=== PATIENT | female | born 1935 | race Caucasian/White ===

== ENCOUNTER 2021-06-02 07:36 | Emergency (ER) | payer OTHER ==
[~2021-06-02] VITALS: Ht 160 cm; Wt 49.4 kg
[2021-06-02] MEDS ORDERED: EUTHYROX75 MC1 (08:11)
[2021-06-02] MEDS ORDERED: SULFAMETHOXAZO1 EAC1 (08:11)
[2021-06-02 08:36] LABS: Source, Urine Clean Catch
[2021-06-02 08:41] LABS: Appearance, Urine Hazy (Clear); Bilirubin, Urine Neg (Neg); Blood, Urine 1+ (Neg); Color, Urine Yellow (P-Yellow); Glucose Qualitative, Urine Neg (Neg); Ketones, Urine Neg (Neg); Leukocyte Esterase, Urine 2+ (Neg); Nitrite, Urine Neg (Neg); Protein, Urine 1+ (Neg); Urobilinogen, Urine 1+ (Normal)
[2021-06-02 08:52] LABS: Squamous Epithelial Cells Many /hpf (Few)
[2021-06-02 08:53] LABS: Bacteria Mod /hpf; Hyaline Casts 0-2 /lpf (0-2)
[2021-06-02] MEDS ORDERED: CEFD300 PO (09:20)
[2021-06-02] MEDS ORDERED: LOVASTATIN20 MG PO (11:07)
[2021-06-02] MEDS ORDERED: ESTRADIOL10 MCG VG (11:07)
[2021-06-02] MEDS ORDERED: METOPROLOL SUCC25 MG PO (11:08)
[2021-06-02] MEDS ORDERED: LISI20 PO (11:08)
[2021-06-02] MEDS ORDERED: TRIM100 PO (11:09)
[2021-06-03] MEDS ORDERED: MERIBIN5 MG PO (23:19)
[2021-06-03] MEDS ORDERED: OMEP20ER PO (23:19)
[2021-06-03] MEDS ORDERED: OMEGA-3 FISH O1 EAC6 PO ×2 (23:20→23:21)
== END 2021-06-02 09:43 | disposition home or self-care (01) ==
LOC: ER 07:36
PROVIDERS: Emergency Medicine
DX: N39.0 Urinary tract infection, site not specified (principal); Z88.5 Allergy status to narcotic agent
CPT/HCPCS: 81001; 87077; 87086; 87186; 99283; A9270

== ENCOUNTER 2021-06-02 10:43 | Inpatient (IN) | payer OTHER ==
[~2021-06-02] VITALS: Ht 160 cm; Wt 49.2 kg
[~2021-06-02 10:43] MED LIST: CEFD300 PO; EUTHYROX75 MC1; SULFAMETHOXAZO1 EAC1
[2021-06-02] MEDS ORDERED: LOVASTATIN20 MG PO (11:07)
[2021-06-02] MEDS ORDERED: ESTRADIOL10 MCG VG (11:07)
[2021-06-02] MEDS ORDERED: METOPROLOL SUCC25 MG PO (11:08)
[2021-06-02] MEDS ORDERED: LISI20 PO (11:08)
[2021-06-02] MEDS ORDERED: TRIM100 PO (11:09)
[2021-06-02 11:25] LABS: BASOPHILS ABSOLUTE AUTO 0.03 K/mm3 (0.00-0.23); BASOPHILS PERCENT AUTO 0 % (0-2); EOSINOPHILS ABSOLUTE AUTO 0.07 K/mm3 (0.00-0.68); EOSINOPHILS PERCENT AUTO 1 % (0-6); Hematocrit 30.8 % (33.0-51.0); Hemoglobin 10.8 g/dL (11.5-16.0); IMMATURE GRAN ABSOLUTE AUTO 0.11 K/mm3 (0.00-0.10); IMMATURE GRAN PERCENT AUTO 1 % (0-1); LYMPHOCYTES ABSOLUTE AUTO 0.51 K/mm3 (0.84-5.20); LYMPHOCYTES PERCENT AUTO 4 % (21-46); MONOCYTES ABSOLUTE AUTO 0.51 K/mm3 (0.16-1.47); MONOCYTES PERCENT AUTO 4 % (4-13); Mean Corpuscular HGB 31.8 pg (26.0-34.0); Mean Corpuscular HGB Conc 35.1 g/dL (31.5-36.5); Mean Corpuscular Volume 91 fL (80-100); Mean Platelet Volume 8.6 fL (9.1-12.4); NEUTROPHILS ABSOLUTE AUTO 13.14 K/mm3 (1.96-9.15); NEUTROPHILS PERCENT AUTO 92 % (41-73); Platelet Count 339 K/mm3 (150-400); RDW Coefficient Variation 13.4 % (11.7-14.2); RDW Standard Deviation 44.5 fL (35.1-46.3); White Blood Cell Count 14.37 K/mm3 (4.00-11.30)
[2021-06-02 12:08] LABS: Albumin, Blood 3.2 g/dL (3.4-5.0); Albumin/Globulin Ratio 0.8 (0.8-1.8); Bilirubin, Total 0.6 mg/dL (0.1-1.0); Bun/Creatinine Ratio 16.7 (12.0-20.0); Calcium, Blood 8.8 mg/dL (8.5-10.1); Creatinine, Blood 1.14 mg/dL (0.40-1.00); Globulin, Blood 3.9 g/dL (2.2-4.0); Potassium, Blood 5.3 mmol/L (3.5-5.5); Total Protein, Blood 7.1 g/dL (6.4-8.2)
[2021-06-02 12:47] LABS: Free Thyroxine 1.53 ng/dL (0.70-1.60); Thyroid Stimulating Hormone 2.26 uIU/mL (0.360-4.800)
[2021-06-02 17:00] LABS: Bun/Creatinine Ratio 17.4 (12.0-20.0); Calcium, Blood 8.4 mg/dL (8.5-10.1); Creatinine, Blood 1.15 mg/dL (0.40-1.00); Potassium, Blood 5.3 mmol/L (3.5-5.5)
--- NOTE | 2021-06-02 18:15 | NUR ---
ICU ADMISSION: PT ARRIVES ADMIT FROM THE ED. PER PREVIOUS RN, PT HAD A R HIP REPAIR x2WKS AGO. SINCE THAT TIME PT HAS NOT RECOVERED FULL MOBILITY & HAS BECOME PROGRESSIVELY WEAK. RECENTLY SEEN @ URGENT CARE & Dx'd W/ UTI. SYMPTOMS DID NOT RESOLVE & PT WAS SEEN IN THE ED THIS MORNING & SENT HOME W/ NEW ABX. @ HOME SHE WAS UNABLE TO STAND, WHICH PROMPTED HER ARRIVAL TO THE ED AGAIN. SHE WAS FOUND HYPONATREMIC @ 108. 3%SALINE STARTED @ 20ml/hr. UPON ARRIVAL PT IS DROWSY, OPENS EYES TO NAME. FOLLOWS SIMPLE COMMANDS. ORIENTED x3, BELIEVES IT IS "1922". OTHERWISE APPROPRIATE. RR EVEN & UNLABORED. R LATERAL HIP TENDER TO PALP, SIGNIFICANTLY BRUISED, PURPLE. SWELLING NOTED TO LATERAL & MEDIAL R THIGH. INCISION SITE APPEARS WELL APPROXIMATED W/ NO DISCHARGE. DISTAL CSM INTACT. NO SIGNIFICANT INTERNAL/EXTERNAL ROTATION. PT ABLE TO PRODUCE SM MOVEMENTS OF RLE BUT IS UNABLE TO LIFT RLE D/T PAIN. 3%SALINE INF @ 20ml/hr. SEE INITIAL SHIFT DOCUMENTATION FOR FULL ASSESSMENT.
[2021-06-02 18:58] LABS: Bun/Creatinine Ratio 15.1 (12.0-20.0); Calcium, Blood 8.3 mg/dL (8.5-10.1); Creatinine, Blood 1.26 mg/dL (0.40-1.00); Potassium, Blood 5.5 mmol/L (3.5-5.5)
--- NOTE | 2021-06-02 19:05 | NUR ---
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 DISCUSSED CONCERNS FOR CENTRAL ACCESS W/ 3%SALINE gtt & PT Hx OF CKD W/OUT RENAL CONSULT. ORDERS RECEIVED FOR DASILVA CONSULT & ADDITIONAL STAT LAB. ORDERS PLACED. ONCOMING RN UPDATED.
[2021-06-02 19:07] LABS: Source, Urine Foley catheter
[2021-06-02 19:24] LABS: Bilirubin, Urine Neg (Neg); Blood, Urine 1+ (Neg); Glucose Qualitative, Urine Neg (Neg); Ketones, Urine Neg (Neg); Leukocyte Esterase, Urine Neg (Neg); Nitrite, Urine Neg (Neg); Protein, Urine Neg (Neg); Urobilinogen, Urine 1+ (Normal)
[2021-06-02 19:33] LABS: Appearance, Urine Clear (Clear); Color, Urine Pale Yellow (P-Yellow)
[2021-06-02 19:34] LABS: Red Blood Cells, Urine 0-2 /hpf (0-2); Squamous Epithelial Cells Rare /hpf (Few); White Blood Cells, Urine 0-2 /hpf (0-5)
[2021-06-02 19:35] LABS: Bacteria Mod /hpf
[2021-06-02 20:06] LABS: Osmolality, Serum 235 mos/KG (275-300)
[2021-06-02 20:13] LABS: Magnesium, Blood 1.8 mg/dL (1.6-2.4); Uric Acid, Blood 3.2 mg/dL (2.6-6.0)
[2021-06-02 20:16] LABS: Albumin, Blood 2.8 g/dL (3.4-5.0); Anion Gap 9 mmol/L (6-16); Blood Urea Nitrogen 21 mg/dL (8-24); Bun/Creatinine Ratio 16.7 (12.0-20.0); CO2, Blood 21 mmol/L (21-32); Calcium, Blood 8.2 mg/dL (8.5-10.1); Chloride, Blood 81 mmol/L (98-108); Creatinine, Blood 1.26 mg/dL (0.40-1.00); Glomerular Filtration Rate 40 (60-); Glucose, Blood 115 mg/dL (70-99); Phosphorus, Blood 3.5 mg/dL (2.5-4.9); Potassium, Blood 5.7 mmol/L (3.5-5.5); Sodium, Blood 111 mmol/L (136-145)
--- NOTE | 2021-06-02 22:10 | NUR ---
ASSUMED PT CARE FROM [facility]OYA CLINE AT 1915 PT LYING IN BED LETHARGIC, BUT ALERT AND ORIENTED. CONFUSED AND FIDGETY AT TIMES. PICC LINE BEING INSERTED DURING ASSUMPTION OF CARE D/T PT BEING ON 3% SALINE AT A RATE OF 20ML/HR. PICC TO LEFT UPPER ARM. PT WITH A RIGHT HIP FX AND NOTED TO BE IN PAIN WITH ANY MOVEMENT. OFFERED PAIN MEDICATION AND PT DECLINED. PT DOESN'T TOLERATE MUCH REPOSITIONING DESPITE EDUCATION ON PREVENTING PRESSURE ULCERS. PT ATTEMPTED PILLOWS BEING FLOATED AND ASKED THEM TO BE REMOVED. SHE IS ABLE TO SHIFT HER WEIGHT SLIGHTLY. DEVINE CATHETER IS PATENT AND DRAINING DARK SUSHMA COLORED URINE TO GRAVITY. PHONE CALL MADE TO DR. DICKENS REGARDING PT NOT BEING STARTED ON ANY ANTIBIOTICS WITH NEW ORDERS FOR CEFTRIAXONE 1GM DAILY. DR. DASILVA LATER CALLED WITH LAB RESULTS WITH NEW ORDERS FOR LAB REDRAWS AT 2300 AND TO GIVE 10GM OF LOKELMA. SEE SHIFT SUMMARY FOR FURTHER DETAILS.
[2021-06-02 23:27] LABS: Potassium, Blood 5.1 mmol/L (3.5-5.5)
[2021-06-03 02:04] LABS: BASOPHILS ABSOLUTE AUTO 0.04 K/mm3 (0.00-0.23); BASOPHILS PERCENT AUTO 0 % (0-2); EOSINOPHILS ABSOLUTE AUTO 0.01 K/mm3 (0.00-0.68); EOSINOPHILS PERCENT AUTO 0 % (0-6); Hematocrit 23.6 % (33.0-51.0); Hemoglobin 8.4 g/dL (11.5-16.0); IMMATURE GRAN ABSOLUTE AUTO 0.09 K/mm3 (0.00-0.10); IMMATURE GRAN PERCENT AUTO 1 % (0-1); LYMPHOCYTES ABSOLUTE AUTO 1.08 K/mm3 (0.84-5.20); LYMPHOCYTES PERCENT AUTO 9 % (21-46); MONOCYTES ABSOLUTE AUTO 0.77 K/mm3 (0.16-1.47); MONOCYTES PERCENT AUTO 6 % (4-13); Mean Corpuscular HGB 32.3 pg (26.0-34.0); Mean Corpuscular HGB Conc 35.6 g/dL (31.5-36.5); Mean Corpuscular Volume 91 fL (80-100); Mean Platelet Volume 8.9 fL (9.1-12.4); NEUTROPHILS ABSOLUTE AUTO 10.21 K/mm3 (1.96-9.15); NEUTROPHILS PERCENT AUTO 84 % (41-73); Platelet Count 290 K/mm3 (150-400); RDW Coefficient Variation 13.5 % (11.7-14.2)
[2021-06-03 02:08] LABS: Magnesium, Blood 1.8 mg/dL (1.6-2.4)
[2021-06-03 02:34] LABS: Albumin, Blood 2.7 g/dL (3.4-5.0); Anion Gap 8 mmol/L (6-16); Blood Urea Nitrogen 23 mg/dL (8-24); CO2, Blood 22 mmol/L (21-32); Calcium, Blood 8.1 mg/dL (8.5-10.1); Chloride, Blood 84 mmol/L (98-108); Creatinine, Blood 1.44 mg/dL (0.40-1.00); Glomerular Filtration Rate 34 (60-); Glucose, Blood 104 mg/dL (70-99); Sodium, Blood 114 mmol/L (136-145)
--- NOTE | 2021-06-03 03:13 | NUR ---
HYPOTENSION CALLED DR. DASILVA REGARDING PT'S SBP 60'S WITH MAP'S 50'S. NEW ORDERS FOR MIDODRINE 5MG TID; HOLD FOR SBP GREATER THAN 130 MMHG
--- NOTE | 2021-06-03 04:06 | NUR ---
DR. LARIOS PT REMAINED HYPOTENSIVE DESPITE MIDODRINE ORDER. NEW ORDERS OBTAINED TO START LEVOPHED
--- NOTE | 2021-06-03 06:15 | NUR ---
END OF SHIFT SUMMARY NO SIGNIFICANT CHANGES. PT SLEPT MOST OF NIGHT. WOULD WAKE OCCASIONALLY UNCOMFORTABLE AND IN PAIN. MEDICATED ONCE WITH TYLENOL AND ONCE WITH ULTRAM PER ORDERS. HYPERTONIC SALINE HAS BEEN OFF SINCE 0200 PER ORDERS. LEVOPHED INITIATED THIS MORNING, CURRENTLY AT 4MCG/MIN. PT STILL HAS ORDERS FOR MIDODRINE Q8 HOURS. PT REMAINS PLEASANTLY CONFUSED AND WILL OCCASIONALLY PICK/FIDGET WITH LINES/CORDS; HOWEVER, SHE IS EASILY REDIRECTABLE. WILL CONTINUE TO MONITOR UNTIL REPORT IS HANDED OFF TO ONCOMING RN.
--- NOTE | 2021-06-03 08:00 | NUR ---
PT A&OX4. PT IS FORGETFUL AT TIMES, BUT EASILY RE-ORIENTED. PT UNAWARE OF THE EVENTS THAT LED TO HER HOSPITALIZATION. PT DENIES PAIN. ECG SHOWS SR WITH RATE 80-90'S. MAP TRENDING 60-70'S ON LEVOPHED AT 4 MCG/MIN-WILL TITRATE TO MAP 60-65. DP/PT PALPABLE AT DEMARCATED AREAS. NO NOTED EDEMA. LUNGS ARE CLEAR. NO NOTED SOB OR COUGH. PT DENIES GI DISTRESS. ABDOMEN IS SOFT AND NONTENDER. DEVINE WITH SMALL AMOUNT OF DARK, YELLOW URINE TO UROMETER. RIGHT HIP IS VERY BRUISED. COCCYX SLIGHTLY RED-MEPILEX PLACED PREVENTATIVE MEASURE. HEELS APPEARED SLIGHTLY RED WELL-BILATERAL FOAM/HEEL DRESSINGS PLACED PREVENTATIVE MEASURE. HEELS FLOATED ON PILLOWS.
--- NOTE | 2021-06-03 08:55 | NUR ---
DR. DASILVA IN BRIEFLY TO SEE PT. FULL UPDATE GIVEN. 0900 NA+ CANCELLED. 3% SALINE RESUMED AT 20 CC/HR. RE-CHECK NA+ @ 1100. US COMPLETE. PT SPOUSE IN FOR VISIT. UPDATED PT SPOUSE TO CURRENT STATUS AND PLAN OF CARE.
--- NOTE | 2021-06-03 12:12 | NUR ---
BROWN ESQUIVEL UPDATED TO NA+ 115-3% SALINE INCREASED TO 30 CC/HR AND WILL RE-CHECK NA+ @1500.
--- NOTE | 2021-06-03 12:35 | NUR ---
DR. BUSTAMANTE HERE TO SEE PT. FULL UPDATE GIVEN.
--- NOTE | 2021-06-03 15:30 | NUR ---
PT DENIES PAIN. AFEBRILE. MAP TRENDING 65-70 LEVOPHED ON STANDBY. BC AND NA+ PENDING. URINE OUTPUT VERY POOR.
--- NOTE | 2021-06-03 16:00 | NUR ---
NA+ 116-DR. DASILVA UPDATED. NEXT NA+ @ 1999. 3% SALINE CONTINUES @ 30 CC/HR. MAP CONTINUES 65-70 WITH LEVOPHED ON STANDBY. PT CONTINUES TO DENY PAIN. NO ACUTE DISTRESS NOTED.
--- NOTE | 2021-06-03 17:32 | NUR ---
PT SITTING UP IN BED EATING DINNER WITHOUT NOTED DISTRESS. MAP 70'S AND LEVOPHED REMAINS ON STANDBY. DR. SWAN IN TO SEE PT-UPDATE GIVEN.
--- NOTE | 2021-06-03 18:00 | NUR ---
PT RESTING QUIETLY WITHOUT NOTED DISTRESS. URINE OUTPUT 130 CC THIS SHIFT.
--- NOTE | 2021-06-03 19:15 | NUR ---
ASSUMED PT CARE FROM ZOYA BURRELL PT SLEEPING IN BED, BUT EASILY AROUSABLE. 3% SALINE INFUSING VIA PICC TO LEFT UPPER ARM AT 30CC/HR. PT IS ALERT AND ORIENTED X4; ABLE TO MAKE NEEDS KNOWN. STATES R HIP PAIN IS TOLERABLE AT THIS MOMENT AND DECLINED THE NEED TO PAIN MEDICATIONS. URINE OUTPUT POOR T/O DAY SHIFT PER REPORT; PT HAS MINIMAL AMOUNTS OF DARK, YELLOW URINE TO UROMETER NOTED. AFEBRILE. CALL LIGHT WITHIN REACH. SEE SHIFT SUMMARY FOR FURTHER DETAILS.
--- NOTE | 2021-06-03 19:45 | NUR ---
CT/XRAY PT TRANSPORTED TO IMAGING
--- NOTE | 2021-06-03 20:20 | NUR ---
CRITICAL LAB RESULTS CALLED TO DR. DASILVA. NEW ORDERS TO REDRAW SODIUM AT 2300 AND TO KEEP 3% SALINE AT 30CC/HR
--- NOTE | 2021-06-03 23:10 | NUR ---
HYPOTENSION MAP'S 50'S; RESTARTED LEVOPHED AT 3MCG/MIN. URINE OUTPUT REMAINS MINIMAL WITH 50CC'S SO FAR THIS SHIFT
[2021-06-03] MEDS ORDERED: MERIBIN5 MG PO (23:19)
[2021-06-03] MEDS ORDERED: OMEP20ER PO (23:19)
[2021-06-03] MEDS ORDERED: OMEGA-3 FISH O1 EAC6 PO ×2 (23:20→23:21)
--- NOTE | 2021-06-03 23:26 | NUR ---
SODIUM LAB RESULTS CALLED DR. DASILVA REGARDING SODIUM OF 121; NEW ORDERS TO D/C 3% SALINE GTT. NO NEW ORDERS.
[2021-06-04 03:19] LABS: Hematocrit 19.4 % (33.0-51.0); Hemoglobin 6.9 g/dL (11.5-16.0)
[2021-06-04 03:37] LABS: Albumin, Blood 2.3 g/dL (3.4-5.0); Anion Gap 10 mmol/L (6-16); Blood Urea Nitrogen 27 mg/dL (8-24); Bun/Creatinine Ratio 18.2 (12.0-20.0); CO2, Blood 20 mmol/L (21-32); Calcium, Blood 7.8 mg/dL (8.5-10.1); Chloride, Blood 92 mmol/L (98-108); Creatinine, Blood 1.48 mg/dL (0.40-1.00); Glomerular Filtration Rate 33 (60-); Glucose, Blood 86 mg/dL (70-99); Magnesium, Blood 2.1 mg/dL (1.6-2.4); Phosphorus, Blood 3.5 mg/dL (2.5-4.9); Potassium, Blood 4.4 mmol/L (3.5-5.5); Sodium, Blood 122 mmol/L (136-145)
--- NOTE | 2021-06-04 06:09 | NUR ---
END OF SHIFT SUMMARY NO SIGNIFICANT CHANGES. 3% SALINE TURNED OFF AROUND 2330 AFTER SODIUM RESULTS WERE CALLED TO DR. DASILVA. PT SLEEPING MOST OF NIGHT. ABLE TO SLIGHTLY SHIFT WEIGHT ON OWN, BUT NEEDS ASSIST WITH MAJOR TURNS. PT ONLY TOLERATES BEING ON HER LEFT SIDE WITH PILLOW UNDER RIGHT HIP FOR SUPPORT; THEREFORE, PT POSITIONED BACK AND FORTH BETWEEN SUPINE AND LEFT SIDE. HEELS REMAINED FLOATED ON PILLOWS T/O NIGHT; REDNESS TO HEALS HAS RESOLVED, BUT BILATERAL FOAM PROTECTORS REMAIN IN PLACE. COCCYX DRESSING ALSO REMAINS IN PLACE FOR PROTECTION; NO OPEN AREAS, ONLY PINK MOISTURE ASSOCIATED SKIN DAMAGE NOTED MOST LIKELY FROM PRIOR INCONTINENCE EPISODES PT ALSO HAS REDNESS NOTED TO UTE AREA. PT REMAINED NSR WITH HR 80'S. PT BECAME HYPOTENSIVE WITH MAP'S IN THE 50'S AGAIN; THEREFORE, LEVOPHED RESTARTED AT A LOW DOSE. URINE OUTPUT 300CC THIS SHIFT; REMAINS DARK SUSHMA. HEMOGLOBIN RESULTED LOW THIS MORNING; CALL MADE TO DR. LARIOS WITH ORDERS TO TRANSFULSE ONE UNIT OF PRBC'S. PT REMAINS ALERT AND ORIENTED AND ABLE TO MAKE NEEDS KNOWN. DID NOT REQUIRE PAIN MEDICATIONS. R HIP REMAINS PAINFUL TO MOVEMENT, SWOLLEN, BRUISED TO SURROUNDING TISSUE, AND NO SIGNIFICANT TEMPERATURE CHANGE NOTED EITHER. WILL CONTINUE TO MONITOR UNTIL REPORT IS HANDED OFF TO ONCOMING RN.
--- NOTE | 2021-06-04 08:00 | NUR ---
PT IS A&OX4. DENIES PAIN OF SOB. ECG SHOWS ST WITH RATE 100'S. TITRATING LEVOPHED TO MAP [id number] AT 2 MCG/MIN. H&H LOW THIS AM AND RIGHT HIP APPEARS MORE SWOLLEN AND BRUISED. PT TO RECEIVE 1 UNIT PRBC'S WHEN AVAILABLE. LUNGS SLIGHTLY DIMINISHED IN THE BASES THIS AM. PT MAINTAINS SATS>90% ON RA AND DENIES COUGH OR SOB. NO GI DISTRESS. PT ABLE TO SWALLOW HER NA+ TABLET WITH A SIP OF WATER WITHOUT DIFFICULTY. DR. DASILVA IN BRIEFLY TO SEE PT-UPDATED TO CURRENT VS AND STATUS. CH1V ORDERED. RE-CHECK NA+ AT 1200. 3% SALINE IS CURRENTLY OFF. DEVINE WITH SLIGHTLY IMPROVED URINE OUTPUT COMPARED TO 06/03/21 DAY SHIFT. DRESSING TO COCCYX AND BILATERAL HEELS IS C/D/I. PT ONLY ABLE TO TOLERATE SMALL TURNS FROM SIDE TO SIDE DUE TO RIGHT HIP PAIN. UTE AREA/INNER THIGHS SLIGHTLY RED AND EXCORIATED. WILL APPLY CALAZIME AFTER PT BATH.
--- NOTE | 2021-06-04 09:00 | NUR ---
PT SPOUSE "KRISTOFER" HERE FOR VISIT. UPDATED TO CURRENT STATUS AND PLAN OF CARE.
--- NOTE | 2021-06-04 11:30 | NUR ---
PRBC'S COMPLETE. MAP TRENDING 75. LEVOPHED CONTINUES @ 2MCG/MIN. PT GIVEN BED BATH AND LINEN CHANGE COMPLETED. PT REPORTS 9/10 PAIN TO RIGHT HIP. RIGHT HIP AND THIGH APPEARS MORE SWOLLEN AND BRUISED TODAY. THERE IS ALSO BRUISING AND SWELLING NOTED TO THE LABIA ON THE RIGHT SIDE. PT REQUESTS MEDICATION FOR PAIN. DR. BUSTAMANTE MADE AWARE. PT MEDICATED WITH FENTANYL 25 MCG IVP X 1 FOR PAIN-SEE EMAR.
--- NOTE | 2021-06-04 12:00 | NUR ---
DR. DASILVA UPDATED WITH NA+ 122-ORDERS GIVEN TO GIVE ADDITIONAL NA+ TABLET AT 1400-SEE EMAR. DR. BUSTAMANTE CONTACTED TO UPDATE ON PT STATUS AND H&H RESULTS. NO NEW ORDERS AT THIS TIME. PT ABLE TO FEED HERSELF LUNCH AND SHE STATES THAT THE PAIN TO HER RIGHT HIP IS "FINE LONG WE DON'T MOVE IT." HR 80'S SR. PT MAINTINING MAP 75 WITH LEVOPHED ON STANDBY. PT MAINTAINS SATS>90% ON RA. NO NOTED RESPIRATORY DISTRESS.
[2021-06-04 12:16] LABS: Hematocrit 25.4 % (33.0-51.0); Hemoglobin 8.7 g/dL (11.5-16.0)
--- NOTE | 2021-06-04 16:00 | NUR ---
PT DENIES COMPLAINTS AT THIS TIME. NO NOTED DISTRESS. PT REQUESTING THAT HARD TURNS FROM SIDE TO SIDE BE AVOIDED MUCH POSSIBLE-SHIFTING HIPS SLIGHTLY FROM SIDE TO SIDE EVERY 2 HOURS. CALL LIGHT WITHIN REACH-PT CALLS FOR ASSIST PRN.
--- NOTE | 2021-06-04 18:00 | NUR ---
PT SITTING UP IN BED EATING DINNER WITHOUT NOTED DISTRESS. SBP 150'S-MIDODRINE HELD-SEE EMAR. PT HAS BEEN OFF OF LEVOPHED SINCE 1130 THIS AM. PT SATS 100% ON RA. URINE OUTPUT HAS IMPROVED TODAY-450 CC OUT. PT HAS NOT HAD A BM X2 DAYS. DR. BUSTAMANTE AWARE AND BOWEL PROTOCOL TO BE INITIATED. ALSO, DISCUSSED RESUMING PT HOME MEDS-SEE MD ORDERS.
--- NOTE | 2021-06-04 19:15 | NUR ---
ASSUMED CARE: PT ASLEEP, EASILY AROUSABLE. A/O X 4. DENIES PAIN EXCEPT WITH REPOSITIONING. PT REFUSING MAJOR REPOSITIONING. VSS- SEE FLOWSHEET DP & PT PULSES DOPPLER, RADIAL PULSES +2 NO BM SINCE ADMIT, BOWEL PROTOCOL INITIATED DEVINE PATENT & FLOWING BRUISING & SWELLING TO RIGHT HIP, REDNESS ON COCCYX PICC TO JC SALINE LOCKED AT THIS TIME SEE SHIFT SUMMARY FOR FURTHER DETAILS
[2021-06-05 04:17] LABS: Hematocrit 23.7 % (33.0-51.0); Hemoglobin 8.3 g/dL (11.5-16.0)
[2021-06-05 04:32] LABS: Albumin, Blood 2.3 g/dL (3.4-5.0); Anion Gap 7 mmol/L (6-16); Blood Urea Nitrogen 23 mg/dL (8-24); Bun/Creatinine Ratio 21.9 (12.0-20.0); CO2, Blood 23 mmol/L (21-32); Chloride, Blood 94 mmol/L (98-108); Creatinine, Blood 1.05 mg/dL (0.40-1.00); Glomerular Filtration Rate 50 (60-); Glucose, Blood 84 mg/dL (70-99); Phosphorus, Blood 2.6 mg/dL (2.5-4.9); Potassium, Blood 4.6 mmol/L (3.5-5.5); Sodium, Blood 124 mmol/L (136-145)
--- NOTE | 2021-06-05 06:58 | NUR ---
DR. DASILVA AT BEDSIDE TO SEE PT. NEW ORDERS TO INCREASE SODIUM TABLET TO 5 TIMES DAILY; REDRAW SODIUM LEVEL AT 1500 AND CALL WITH RESULTS BY 1600.
--- NOTE | 2021-06-05 08:16 | NUR ---
ASSUMED CARE / DR SWAN: REPORT RECEIVED FROM BERNICE Farmer RN. ASSUMED CARE OF THIS PT AT APPROX 070. ON ASSESSMENT, THE PT IS A&O TO ALL, PLEASANT & COOPERATIVE. SHE DENIES PAIN WHILE AT REST, STS PAIN LOCALIZED TO RIGHT HIP W/ REPOSITIONING. LS ARE CLEAR T/O, PT ON RA W/ O2 SATS > 92%. MONITOR SHOWS SR W/ HR 70-90s, BP STABLE. PT NPO FOR POSSIBLE SURGERY OF RIGHT HIP AT SOME POINT TODAY. DEVINE PATENT/ DRAINING YELLOW URINE. SKIN CONDITION OVERALL FRAGILE, INTACT. LARGE AREA OF ECCHYMOSIS NOTED TO RIGHT HIP, SURGICAL SITE IS HEALING WELL. REDDENED AREAS TO COCCYX & BILAT HEELS ARE BLANCHABLE W/ FOAM DRESSINGS IN PLACE FOR WOUND PROPHYLAXIS. DR SWAN AT BEDSIDE THIS AM TO EVAL PT. HE STS THAT HE IS CONSIDERING COBRA TX TO LARGER FACILITY THE BEST OPTION FOR THIS PT. ANESTHESIA IN THIS FACILITY WILL NOT CONSIDER TAKING THE PT FOR SURGERY UNTIL SODIUM IS [address] SWAN FEELS THAT DUE TO THE COMPLEX NATURE OF THE PT's RIGHT HIP FX, HAVING A SURGICAL REPAIR SOONER THAN LATER WOULD BE BENEFICIAL IN RETURNING HER TO AMBULATORY BASELINE. BECAUSE SODIUM IS STILL < 130, HE WILL BE MAKING PHONE CALLS TO DETERMINE IF ANESTHESIA/ ORTHOPEDICS AT ANOTHER FACILITY WOULD BE WILLING TO TAKE THIS PT. THE PT IS AGREEABLE & HER IS NOW AWARE OF THIS SITUATION. WILL CONTINUE TO MONITOR & UPDATE NEEDED.
--- NOTE | 2021-06-05 08:50 | NUR ---
DR ROSSI / UPDATE: PROVIDER AT BEDSIDE TO EVAL PT THIS AM. DISCUSSED DR SWAN's PLAN TO COBRA TX THIS PATIENT & HAVE GIVEN HER DR SWAN's CELL PHONE NUMBER TO CONTACT HIM DIRECTLY. SHE HAS SPOKEN W/ DR SWAN & IS IN AGREEANCE THAT A COBRA TX WOULD BE BENEFICIAL FOR THIS PT, DR SWAN STS HE IS MAKING PHONE CALLS TO TRY & ARRANGE THIS TX. THIS RN HAS FAXED FACESHEET TO [facility] PER PROVIDER REQUEST. PARAMETES FOR PT's HOME BP MEDS OF METOPROLOL & LISINOPRIL HAVE BEEN DISCUSSED & ORDERS HAVE BEEN MODIFIED TO REFLECT THIS. MIDODRINE & LEVOPHED D/C'd PER PROVIDER. PT's STATUS CHANGED TO SURGICAL W/ TELE & ORDERS PLACED.
--- NOTE | 2021-06-05 13:50 | NUR ---
UPDATE: CALL TO DR SWAN REQUESTING A DIET ORDER IF THIS PT IS NO LONGER A CANDIDATE FOR SURGICAL REPAIR OF RIGHT HIP TODAY. THERE IS NO ACCEPTING FACILITY/ PROVIDER AT THIS TIME & THE PT SHOULD BE ALLOWED TO EAT. ORDERS FOR REGULAR DIET PLACED & PT PROVIDED W/ A SNACK AT HER REQUEST.
--- NOTE | 2021-06-05 18:11 | NUR ---
SHIFT SUMMARY: NO ACUTE CHANGES SINCE PRIOR UPDATES. PT REMAINS A&O, PLEASANT & COOPERATIVE. SHE GENERALLY DENIES PAIN AT REST, STS INCREASED PAIN W/ REPOSITIONING TO RIGHT HIP, SUBSIDES QUICKLY ONCE REPOSITIONING COMPLETE. LS CLEAR T/O, PT ON RA W/ O2 SATS > 92%. MONITOR SHOWS SR-ST W/ HR 70-100s. SBP DECREASED TO 90s AFTER SCHEDULED AM ANTIHYPERTENSIVES. PT IS NOT SYMPTOMATIC OF THIS & MAP REMAINS > 65. SHE IS TOLERATING PO INTAKE WELL, NO BM THIS SHIFT. BOWEL CARE PER EMAR. DEVINE PATENT/ DRAINING YELLOW URINE. SKIN CONDITION OVERALL FRAGILE, Q2H REPOSITIONING TO MAINTAIN SKIN ITEGRITY. LARGE AREA OF ECCHYMOSIS TO RIGHT HIP UNCHANGED, SURGICAL INCISION WNL, HEALING. REDDENED AREAS TO COCCYX & BILATERAL HEELS REMAIN BLANCHABLE THIS AFTERNOON, DRESSINGS CDI, HEELS FLOATED. THIS PT IS SURGICAL W/ TELE STATUS & HAS BEEN ASSIGNED ROOM 222 FOR TRANSFER, WILL NOTIFY PT's PRIOR TO TX. WILL CONTINUE TO MONITOR & REPORT OFF TO RN ON SURGICAL FLOOR.
--- NOTE | 2021-06-05 20:00 | NUR ---
RECEIVED REPORT AND ASSUMED CARE OF PT. A&OX4, HIREN WATER WITHOUT DIFFICULTY. WILL BE MADE NPO AT MIDNIGHT. SHE DENIES ANY OTHER NEEDS AT THIS TIME. CALL LIGHT IN REACH. MISAEL.
[2021-06-06 04:45] LABS: BASOPHILS ABSOLUTE AUTO 0.06 K/mm3 (0.00-0.23); BASOPHILS PERCENT AUTO 1 % (0-2); EOSINOPHILS ABSOLUTE AUTO 0.13 K/mm3 (0.00-0.68); EOSINOPHILS PERCENT AUTO 2 % (0-6); Hematocrit 24.7 % (33.0-51.0); Hemoglobin 8.4 g/dL (11.5-16.0); IMMATURE GRAN PERCENT AUTO 1 % (0-1); LYMPHOCYTES ABSOLUTE AUTO 1.14 K/mm3 (0.84-5.20); LYMPHOCYTES PERCENT AUTO 14 % (21-46); MONOCYTES ABSOLUTE AUTO 0.56 K/mm3 (0.16-1.47); MONOCYTES PERCENT AUTO 7 % (4-13); Mean Corpuscular HGB 32.1 pg (26.0-34.0); Mean Corpuscular Volume 94 fL (80-100); Mean Platelet Volume 8.8 fL (9.1-12.4); NEUTROPHILS ABSOLUTE AUTO 6.44 K/mm3 (1.96-9.15); NEUTROPHILS PERCENT AUTO 77 % (41-73); Platelet Count 215 K/mm3 (150-400); RDW Coefficient Variation 14.7 % (11.7-14.2); Red Blood Cell Count 2.62 M/mm3 (3.80-5.20); White Blood Cell Count 8.43 K/mm3 (4.00-11.30)
[2021-06-06 05:01] LABS: Albumin, Blood 2.2 g/dL (3.4-5.0); Anion Gap 7 mmol/L (6-16); Blood Urea Nitrogen 20 mg/dL (8-24); Bun/Creatinine Ratio 21.2 (12.0-20.0); CO2, Blood 23 mmol/L (21-32); Calcium, Blood 8.4 mg/dL (8.5-10.1); Chloride, Blood 96 mmol/L (98-108); Creatinine, Blood 0.94 mg/dL (0.40-1.00); Glomerular Filtration Rate 56 (60-); Glucose, Blood 92 mg/dL (70-99); Phosphorus, Blood 2.3 mg/dL (2.5-4.9); Potassium, Blood 4.6 mmol/L (3.5-5.5); Sodium, Blood 126 mmol/L (136-145)
--- NOTE | 2021-06-06 06:16 | NUR ---
SHIFT SUMMARY: LILLIANA IS A&OX4, ABLE TO MAKE HER NEEDS KNOWN. VSS. [employer] DID CALL ONCE THIS SHIFT AND REPORT AN ELEVATION IN LILLIANA'S HEART RATE. PT WAS ATTEMPTING TO MOVE HERSELF IN BED STATING THAT SHE FELT SHE NEEDED TO URINATE. DEVINE REPOSITIONED RESULTING IN INCREASED URINARY FLOW THROUGH THE TUBE, PT REPORTED RELIEF AND HR RETURNED TO BASELINE. Q2 TURN/REPOSITIONING TO PRESERVE SKIN INTEGRITY. PT CALLS PRN FOR REPOSITIONING WELL. SHE WAS MADE NPO AT MIDNIGHT. PICC TO JC SHEARER, DOES NOT DRAW. SHE IS LYING IN BED WITH THE CALL LIGHT IN REACH. WILL REPORT TO DAY SHIFT RN.
--- NOTE | 2021-06-06 17:28 | NUR ---
SHIFT SUMMARY PT READJUSTED FOR COMFORT AND PRESSURE REDUCTION. NPO UNTIL SPOKE WITH DR. SWAN AND OK FOR EATING. DENIES PAIN UNLESS MOVED ABOUT. DEVINE FOUND TO BE LEAKING THIS MORNING. TUBING REPOSITIONED AND BAG PLACED AT FOOT OF BED AND NO MORE LEAKING NOTED WELL IMPROVED DRAINAGE NOTED. IN TO VISIT THIS AFTERNOON. DR. SWAN REPORTS WAITING FOR A BED IN [place] FOR PROCEDURE.
--- NOTE | 2021-06-07 03:39 | NUR ---
SHIFT SUMMARY A/O X4. RESTING PEACEFULLY THROUGHOUT THE NIGHT. VSS. PAIN REPORTED IN R HIP WHEN BEING REPOSITIONED, BUT OTHERWISE TOLERABLE. DEVINE DRAINING TO GRAVITY. TOLERATING PO INTAKE. WILL CONTINUE TO MONITOR AND REPORT TO ONCOMING RN.
[2021-06-07 04:51] LABS: BASOPHILS ABSOLUTE AUTO 0.08 K/mm3 (0.00-0.23); BASOPHILS PERCENT AUTO 1 % (0-2); EOSINOPHILS ABSOLUTE AUTO 0.16 K/mm3 (0.00-0.68); EOSINOPHILS PERCENT AUTO 2 % (0-6); Hematocrit 24.8 % (33.0-51.0); Hemoglobin 8.1 g/dL (11.5-16.0); IMMATURE GRAN ABSOLUTE AUTO 0.13 K/mm3 (0.00-0.10); IMMATURE GRAN PERCENT AUTO 2 % (0-1); LYMPHOCYTES ABSOLUTE AUTO 1.39 K/mm3 (0.84-5.20); LYMPHOCYTES PERCENT AUTO 18 % (21-46); MONOCYTES ABSOLUTE AUTO 0.68 K/mm3 (0.16-1.47); MONOCYTES PERCENT AUTO 9 % (4-13); Mean Corpuscular HGB 31.9 pg (26.0-34.0); Mean Corpuscular HGB Conc 32.7 g/dL (31.5-36.5); Mean Corpuscular Volume 98 fL (80-100); Mean Platelet Volume 8.8 fL (9.1-12.4); NEUTROPHILS ABSOLUTE AUTO 5.22 K/mm3 (1.96-9.15); NEUTROPHILS PERCENT AUTO 68 % (41-73); Platelet Count 187 K/mm3 (150-400); RDW Coefficient Variation 14.7 % (11.7-14.2); RDW Standard Deviation 52.3 fL (35.1-46.3); Red Blood Cell Count 2.54 M/mm3 (3.80-5.20); White Blood Cell Count 7.66 K/mm3 (4.00-11.30)
[2021-06-07 05:12] LABS: Anion Gap 5 mmol/L (6-16); Blood Urea Nitrogen 17 mg/dL (8-24); Bun/Creatinine Ratio 18.6 (12.0-20.0); CO2, Blood 23 mmol/L (21-32); Calcium, Blood 8.1 mg/dL (8.5-10.1); Chloride, Blood 98 mmol/L (98-108); Creatinine, Blood 0.91 mg/dL (0.40-1.00); Glomerular Filtration Rate 58 (60-); Glucose, Blood 97 mg/dL (70-99); Phosphorus, Blood 2.8 mg/dL (2.5-4.9); Potassium, Blood 4.4 mmol/L (3.5-5.5); Sodium, Blood 126 mmol/L (136-145)
--- NOTE | 2021-06-07 18:27 | NUR ---
SHIFT SUMMARY NO CHANGES. AWAITING BED @ [facility]. DECLINES PAIN MEDS. ALERT, ORIENTED, & PLEASANT.
--- NOTE | 2021-06-08 01:04 | NUR ---
CATHETER CARE DONE USING READYCLEANSE WIPES.
--- NOTE | 2021-06-08 01:35 | NUR ---
SHIFT SUMMARY: PT. AOX4, DENIES PAIN, STATED " I AM FINE". DEVINE CATH DRAINING CLEAR YELLOW URINE VIA GRAVITY. ROUNDING & REPOSITIONING DONE PER POLICY THEN PRN. BOTH ANKLES WITH PROTECTORS & ELEVATED ON PILLOW. NO ACUTE CHANGES NOTED. R THIGH BRUISING & SCATERRED SMALL BRUISES TO LLE. WILL CONTINUE TO MONITOR.
[2021-06-08 02:05] LABS: Influenza A, PCR NEGATIVE (NEGATIVE); Influenza B, PCR NEGATIVE (NEGATIVE); Resp Syncytial Virus, PCR NEGATIVE (NEGATIVE); SARS-Cov-2 (COVID-19) PCR, MMC NEGATIVE (NEGATIVE)
[2021-06-08 04:38] LABS: BASOPHILS ABSOLUTE AUTO 0.08 K/mm3 (0.00-0.23); BASOPHILS PERCENT AUTO 1 % (0-2); EOSINOPHILS ABSOLUTE AUTO 0.27 K/mm3 (0.00-0.68); EOSINOPHILS PERCENT AUTO 4 % (0-6); Hematocrit 24.3 % (33.0-51.0); IMMATURE GRAN ABSOLUTE AUTO 0.14 K/mm3 (0.00-0.10); IMMATURE GRAN PERCENT AUTO 2 % (0-1); LYMPHOCYTES ABSOLUTE AUTO 1.49 K/mm3 (0.84-5.20); LYMPHOCYTES PERCENT AUTO 21 % (21-46); MONOCYTES ABSOLUTE AUTO 0.73 K/mm3 (0.16-1.47); MONOCYTES PERCENT AUTO 10 % (4-13); Mean Corpuscular HGB Conc 32.9 g/dL (31.5-36.5); Mean Corpuscular Volume 97 fL (80-100); Mean Platelet Volume 8.8 fL (9.1-12.4); NEUTROPHILS ABSOLUTE AUTO 4.42 K/mm3 (1.96-9.15); NEUTROPHILS PERCENT AUTO 62 % (41-73); Platelet Count 189 K/mm3 (150-400); RDW Coefficient Variation 14.8 % (11.7-14.2); White Blood Cell Count 7.13 K/mm3 (4.00-11.30)
[2021-06-08 05:05] LABS: Anion Gap 7 mmol/L (6-16); Blood Urea Nitrogen 21 mg/dL (8-24); Bun/Creatinine Ratio 20.8 (12.0-20.0); CO2, Blood 24 mmol/L (21-32); Calcium, Blood 7.9 mg/dL (8.5-10.1); Chloride, Blood 101 mmol/L (98-108); Creatinine, Blood 1.01 mg/dL (0.40-1.00); Glomerular Filtration Rate 52 (60-); Glucose, Blood 93 mg/dL (70-99); Magnesium, Blood 1.9 mg/dL (1.6-2.4); Phosphorus, Blood 2.8 mg/dL (2.5-4.9); Potassium, Blood 4.2 mmol/L (3.5-5.5); Sodium, Blood 132 mmol/L (136-145)
--- NOTE | 2021-06-08 13:00 | NUR ---
PATIENT WOKE UP THIS A.M. AND CRYING OUT "I HURT", ROXANOL GIVEN AND PT. DID VERBALIZE RELIEF AND TLC GIVEN , PATIENT REFUSE BREAKFAST BUT DID TAKE ONE BITE APPLESAUCE AND DRANK ABOUT 200 ML WATER. REPOSITIONED AFTER PAIN MED TO LEFT SIDE, PT. TOLERATE WELL. DRSG. ON COCCYX CLEAN DRY AND INTACT.
--- NOTE | 2021-06-08 17:15 | NUR ---
PT. DISCHARGED TO [facility] IN [place] AT THIS TIME. REPORT CALLED TO SHAHANA KENNY AT [facility]. HERE AND TOOK ONE OF PT. BAGS HOME WITH HIM. 2 BAGS OF PERSONAL BELONGINGS WITH PT.-TRANSPORTED VIA GURNEY, AMBULANCE TO [place]. DENIES PAIN. PAPERWORK SENT WITH TRANSPORT [facility].
== END 2021-06-08 17:13 | disposition short-term general hospital (02) | DRG 871 ==
LOC: ER 10:43 → ICUW 17:22 → SURS 17:22 → ICUW 17:51 → SURS 06-05 19:56
PROVIDERS: Emergency Medicine; Family Medicine; Internal Medicine Nephrology; ADMIT Internal Medicine
PROC: 05HY33Z Insertion of Infusion Device into Upper Vein, Percutaneous Approach (ICD-10-PCS; 2021-06-02)
PROC: 3E033XZ Introduction of Vasopressor into Peripheral Vein, Percutaneous Approach (ICD-10-PCS; principal; 2021-06-03)
DX: A41.81 Sepsis due to Enterococcus (principal); S72.141A Displaced intertrochanteric fracture of right femur, initial encounter for closed fracture; R65.21 Severe sepsis with septic shock; N17.9 Acute kidney failure, unspecified; E87.2 Acidosis; M97.01XA Periprosthetic fracture around internal prosthetic right hip joint, initial encounter; E22.2 Syndrome of inappropriate secretion of antidiuretic hormone; N39.0 Urinary tract infection, site not specified; Z20.822 Contact with and (suspected) exposure to COVID-19; Z53.29 Procedure and treatment not carried out because of patient's decision for other reasons; Z66 Do not resuscitate; N18.30 Chronic kidney disease, stage 3 unspecified; E83.39 Other disorders of phosphorus metabolism; E78.5 Hyperlipidemia, unspecified; E86.0 Dehydration; I12.9 Hypertensive chronic kidney disease with stage 1 through stage 4 chronic kidney disease, or unspecified chronic kidney disease; E87.5 Hyperkalemia; D63.1 Anemia in chronic kidney disease; Z90.710 Acquired absence of both cervix and uterus; Z79.899 Other long term (current) drug therapy; Z88.5 Allergy status to narcotic agent; X58.XXXA Exposure to other specified factors, initial encounter; F17.210 Nicotine dependence, cigarettes, uncomplicated
CPT/HCPCS: 0241U; 36415; 36416; 36430; 36569; 51702; 71045; 73502; 73552; 73700; 76377; 76770; 80048; 80053; 80069; 81001; 82533; 83735; 83930; 84132; 84295; 84439; 84443; 84550; 85014; 85018; 85025; 86850; 86900; 86901; 86923; 87040; 87077; 87086; 87186; 99285-25; A9270; C1751; J0696; J0881; J1650; J3010; J7030; J7050; J7060; P9016

== ENCOUNTER → 2021-06-16 | Outpatient (CLI) | payer OTHER ==
[~2021-06-16] MED LIST changes: +ESTRADIOL10 MCG VG; +LISI20 PO; +LOVASTATIN20 MG PO; +MERIBIN5 MG PO; +METOPROLOL SUCC25 MG PO; +OMEGA-3 FISH O1 EAC6 PO; +OMEP20ER PO; +TRIM100 PO
[2021-06-16 18:03] LABS: BASOPHILS ABSOLUTE AUTO 0.07 K/mm3 (0.00-0.23); BASOPHILS PERCENT AUTO 1 % (0-2); EOSINOPHILS ABSOLUTE AUTO 0.06 K/mm3 (0.00-0.68); EOSINOPHILS PERCENT AUTO 1 % (0-6); Hematocrit 26.5 % (33.0-51.0); Hemoglobin 9.2 g/dL (11.5-16.0); IMMATURE GRAN ABSOLUTE AUTO 0.07 K/mm3 (0.00-0.10); IMMATURE GRAN PERCENT AUTO 1 % (0-1); LYMPHOCYTES ABSOLUTE AUTO 1.07 K/mm3 (0.84-5.20); LYMPHOCYTES PERCENT AUTO 10 % (21-46); MONOCYTES ABSOLUTE AUTO 0.63 K/mm3 (0.16-1.47); MONOCYTES PERCENT AUTO 6 % (4-13); Mean Corpuscular HGB Conc 34.7 g/dL (31.5-36.5); Mean Corpuscular Volume 95 fL (80-100); Mean Platelet Volume 9.1 fL (9.1-12.4); NEUTROPHILS ABSOLUTE AUTO 8.42 K/mm3 (1.96-9.15); NEUTROPHILS PERCENT AUTO 82 % (41-73); Platelet Count 279 K/mm3 (150-400); RDW Coefficient Variation 15.8 % (11.7-14.2); RDW Standard Deviation 54.3 fL (35.1-46.3); Red Blood Cell Count 2.79 M/mm3 (3.80-5.20); White Blood Cell Count 10.32 K/mm3 (4.00-11.30)
[2021-06-16 18:11] LABS: Albumin, Blood 2.2 g/dL (3.4-5.0); Anion Gap 8 mmol/L (6-16); Blood Urea Nitrogen 12 mg/dL (8-24); Bun/Creatinine Ratio 15.8 (12.0-20.0); CO2, Blood 26 mmol/L (21-32); Calcium, Blood 7.6 mg/dL (8.5-10.1); Chloride, Blood 99 mmol/L (98-108); Creatinine, Blood 0.76 mg/dL (0.40-1.00); Glomerular Filtration Rate >60 (60-); Glucose, Blood 108 mg/dL (70-99); Phosphorus, Blood 2.6 mg/dL (2.5-4.9); Sodium, Blood 133 mmol/L (136-145)
== END | disposition home or self-care (01) ==
LOC: LAB SHORT 17:07 → LAB 17:07
PROVIDERS: Nurse Practitioner Family
DX: N17.9 Acute kidney failure, unspecified (principal); N18.31 Chronic kidney disease, stage 3a; D51.0 Vitamin B12 deficiency anemia due to intrinsic factor deficiency
CPT/HCPCS: 80069; 82607; 83970; 85025

== ENCOUNTER → 2021-06-22 | Outpatient (CLI) | payer OTHER ==
[2021-06-22 15:35] LABS: Albumin, Blood 2.4 g/dL (3.4-5.0); Albumin/Globulin Ratio 0.7 (0.8-1.8); Bilirubin, Direct 0.3 mg/dL (0.0-0.3); Bilirubin, Indirect 0.5 mg/dL (0.1-0.7); Bilirubin, Total 0.8 mg/dL (0.1-1.0); Globulin, Blood 3.4 g/dL (2.2-4.0); Percent Saturation 17.4 % (15.0-50.0); Total Protein, Blood 5.8 g/dL (6.4-8.2)
== END | disposition home or self-care (01) ==
LOC: LAB SHORT 14:30 → LAB 14:30
PROVIDERS: Internal Medicine Nephrology
DX: Z79.01 Long term (current) use of anticoagulants (principal); Z51.81 Encounter for therapeutic drug level monitoring; I12.9 Hypertensive chronic kidney disease with stage 1 through stage 4 chronic kidney disease, or unspecified chronic kidney disease; N18.30 Chronic kidney disease, stage 3 unspecified; D63.1 Anemia in chronic kidney disease; D50.9 Iron deficiency anemia, unspecified; M80.851D Other osteoporosis with current pathological fracture, right femur, subsequent encounter for fracture with routine healing; K57.92 Diverticulitis of intestine, part unspecified, without perforation or abscess without bleeding; E78.00 Pure hypercholesterolemia, unspecified; E06.3 Autoimmune thyroiditis; K59.09 Other constipation; F17.210 Nicotine dependence, cigarettes, uncomplicated; K21.9 Gastro-esophageal reflux disease without esophagitis; K22.70 Barrett's esophagus without dysplasia; R94.5 Abnormal results of liver function studies; N25.81 Secondary hyperparathyroidism of renal origin; Z91.81 History of falling
CPT/HCPCS: 80076; 82306; 82728; 83540; 83550

== ENCOUNTER → 2021-07-06 | Outpatient (CLI) | payer OTHER ==
[2021-07-06 09:21] LABS: Creatinine Urine 79.8 mg/dL (27.00-270.00); Protein, Urine Quantitative 18.8 mg/dL (0.0-11.9)
== END | disposition home or self-care (01) ==
LOC: LAB SHORT 07:16 → LAB FUT 07-04 09:35
PROVIDERS: Internal Medicine Nephrology
DX: N18.30 Chronic kidney disease, stage 3 unspecified (principal); D63.1 Anemia in chronic kidney disease; N25.81 Secondary hyperparathyroidism of renal origin; G60.9 Hereditary and idiopathic neuropathy, unspecified; E78.00 Pure hypercholesterolemia, unspecified; E55.9 Vitamin D deficiency, unspecified; D50.9 Iron deficiency anemia, unspecified; D52.8 Other folate deficiency anemias; D51.8 Other vitamin B12 deficiency anemias; R76.9 Abnormal immunological finding in serum, unspecified; R94.5 Abnormal results of liver function studies; R94.6 Abnormal results of thyroid function studies
CPT/HCPCS: 81050; 82570; 84156; 84300

== ENCOUNTER → 2021-09-20 | Outpatient (CLI) | payer OTHER ==
[2021-09-21 08:32] LABS: Candida species (DNA Probe) Negative (NEGATIVE); G. vaginalis (DNA Probe) Positive (NEGATIVE); T. vaginalis (DNA Probe) Negative (NEGATIVE)
== END | disposition home or self-care (01) ==
LOC: LAB 13:44 → LAB SHORT 13:44
PROVIDERS: Family Medicine
DX: N89.8 Other specified noninflammatory disorders of vagina (principal)
CPT/HCPCS: 87480; 87510; 87660

== ENCOUNTER → 2021-11-23 | Outpatient (CLI) | payer OTHER | END | disposition home or self-care (01) | LOC: LAB 09:54 → LAB SHORT 09:54 | DX: N89.8 Other specified noninflammatory disorders of vagina (principal); N90.89 Other specified noninflammatory disorders of vulva and perineum | CPT/HCPCS: 87070; 87205 ==

== ENCOUNTER → 2022-03-16 | Outpatient (CLI) | payer OTHER ==
[2022-03-16 16:16] LABS: Source, Urine Voided
[2022-03-16 20:21] LABS: Calcium Oxalate Crystals Rare /hpf
[2022-03-16 20:22] LABS: Bacteria Many /hpf; Red Blood Cells, Urine 0-2 /hpf (0-2); Squamous Epithelial Cells Mod /hpf (Few)
[2022-03-16 20:23] LABS: Transitional Epithelial Cells Rare /hpf (0-Rare)
== END | disposition home or self-care (01) ==
LOC: LAB 08:45 → LAB SHORT 08:45
PROVIDERS: Family Medicine
DX: N39.0 Urinary tract infection, site not specified (principal)
CPT/HCPCS: 81015; 87086